=== PATIENT | female | born 1985 | race Hispanic/Latino ===

== ENCOUNTER 2022-02-08 20:14 | Emergency (ER) | payer SELFPAY ==
[2022-02-08] MEDS ORDERED: Venlafaxine HCl XR 150 MG CAP PO SCH (21:45)
[2022-02-08] MEDS ORDERED: hydrOXYzine 25 MG TAB ONE (22:06)
[2022-02-08] MEDS ORDERED: risperiDONE 1 MG TAB ONE (22:06)
[2022-02-08] MEDS ORDERED: Ondansetron PF 4 MG/2 ML Vial ONE (22:27)
== END 2022-02-08 22:18 | disposition home or self-care (01) ==
LOC: ERS 20:14
DX: R42 Dizziness and giddiness (principal); Z76.0 Encounter for issue of repeat prescription
CPT/HCPCS: 93005; J2405